=== PATIENT | male | born 1980 | race Asian ===

== ENCOUNTER 2016-09-12 22:45 | Emergency (ER) | payer OTHER ==
--- NOTE | 2016-09-13 19:18 | ER ---
ADMIT: 09/12/2016 RM/LOC: ER [facility] MR#: [id number] [facility] [address] [place], [place] [address] ADY MARSH [address] [address] Emergency Room Report SEX: M AGE: 35 : 1980 DATE: 09/12/2016 HISTORY OF PRESENT ILLNESS: The patient is a 35-year-old male, recently diagnosed with flu, on Tamiflu, came to the ER with chief complaint of right infra-auricular mass, which is about 2 cm and is nontender and the patient had it for 1 day. The patient denies similar symptoms in the past. Denies any tooth pain or any pain on the maxillary or frontal sinuses. PHYSICAL EXAMINATION: VITAL SIGNS: The patient is afebrile in the ER. HEENT: Inside the mouth, oropharynx is mildly erythematous without any exudates. There are no peritonsillar abscesses. Base of the tongue is not elevated. There is no submandibular mass or swelling. In the inferior auricular area, there is 1 questionable lymph node, which mildly mobile and is nontender. Trachea is midline. LUNGS: Clear. The rest of the physical exam is noncontributory. The patient was discharged to home with return precautions, prescription for Keflex and follow up with the primary doctor as needed. At this stage, lymphadenopathy is at the top of our differentials. Marshall Hall MD/ sharlene JOB #: [id number] CC: Marshall Hall MD, Attending Physician Sedrick Harvey MD, Family Physician
== END 2016-09-12 23:40 | disposition home or self-care (01) ==
LOC: ER 22:45
DX: R59.1 Generalized enlarged lymph nodes (principal); R22.9 Localized swelling, mass and lump, unspecified